=== PATIENT | female | born 1950 | race Caucasian/White ===

== ENCOUNTER 2017-10-05 12:01 | Emergency (ER) | payer MEDICARE, MEDICAID ==
[~2017-10-05] VITALS: Ht 170.2 cm; Wt 86.4 kg
[~2017-10-05 12:01] MED LIST: ARIP5TAB4 PO; ASPI81TA47 PO; ATOR40TA3 PO; CHOL100046 PO; CITA40TA11 PO; CLOP75TA18 PO; CYA500T PO; DIVA250T6 PO; GLIP5TAB13 PO; HYDR-565 PO; LANTUS SUBCUT; LINA5TAB4 PO; LISI10TA PO; LORA0.5T PO; MELO-100 PO; OMEP40CA37 PO; PHE12.5T PO; SUMA50TA PO; SYN0.025T PO; TIZA4TAB11 PO
[2017-10-05 13:45] VITALS: BP 141/71
== END 2017-10-05 18:42 | disposition home or self-care (01) ==
LOC: ER 12:02
DX: I16.0 Hypertensive urgency (principal); H53.8 Other visual disturbances; I67.82 Cerebral ischemia; E11.9 Type 2 diabetes mellitus without complications; I11.0 Hypertensive heart disease with heart failure; I50.9 Heart failure, unspecified; J44.9 Chronic obstructive pulmonary disease, unspecified; E78.00 Pure hypercholesterolemia, unspecified; G89.29 Other chronic pain; I25.2 Old myocardial infarction; Z86.73 Personal history of transient ischemic attack (TIA), and cerebral infarction without residual deficits; Z79.82 Long term (current) use of aspirin; Z79.4 Long term (current) use of insulin; Z79.899 Other long term (current) drug therapy; Z88.0 Allergy status to penicillin; Z88.5 Allergy status to narcotic agent; Z91.018 Allergy to other foods; Z88.7 Allergy status to serum and vaccine; Z88.8 Allergy status to other drugs, medicaments and biological substances
CPT/HCPCS: 70450; 99284

== ENCOUNTER 2017-12-13 09:13 | Day surgery (SDC) | payer MEDICARE, MEDICAID ==
[~2017-12-13] VITALS: Ht 167.6 cm; Wt 94.5 kg
[2017-12-13 09:25] VITALS: BP 124/54
[2017-12-13] MEDS ORDERED: CYCL-1 PO (14:58)
[2017-12-13] MEDS ORDERED: LACO100T2 PO (15:10)
[2017-12-13] MEDS ORDERED: CITA40TA22 PO (16:32)
[2017-12-13] MEDS ORDERED: CHOL10002 PO (16:32)
[2017-12-13] MEDS ORDERED: imitrex PO (16:35)
[2017-12-13] MEDS ORDERED: DIVA500T7 PO (16:41)
[2017-12-13] MEDS ORDERED: INSU100C10 SQ (16:43)
[2017-12-13] MEDS ORDERED: ACET-75 PO (16:46)
[2017-12-13] MEDS ORDERED: DOCU-28 PO (16:47)
[2017-12-13] MEDS ORDERED: LEVO50TA8 PO (16:49)
[2017-12-14] MEDS ORDERED: TIOT4MIS2 IH (12:16)
[2017-12-14] MEDS ORDERED: FLUT16SP2 BOTHNARES (12:17)
[2017-12-14] MEDS ORDERED: LANTUS SQ (12:18)
[2017-12-14] MEDS ORDERED: LINA5TAB4 PO (12:19)
[2017-12-14] MEDS ORDERED: ALBU18HF2 INH (12:22)
[2017-12-14] MEDS ORDERED: NAPR500T6 PO (12:24)
[2017-12-14] MEDS ORDERED: CARV6.253 PO (12:26)
[2017-12-14] MEDS ORDERED: ALBU2.5V12 NEB (12:26)
[2017-12-14] MEDS ORDERED: BUDE180A INH (12:27)
[2017-12-14] MEDS ORDERED: FURO-150 PO (12:28)
[2017-12-14] MEDS ORDERED: TEMA15CA5 PO (12:29)
== END 2017-12-13 10:20 | disposition home or self-care (01) ==
LOC: GI LAB 09:13
PROVIDERS: ATTEND Internal Medicine Gastroenterology
DX: R19.5 Other fecal abnormalities (principal); Z53.8 Procedure and treatment not carried out for other reasons; Z79.82 Long term (current) use of aspirin; Z79.899 Other long term (current) drug therapy; Z79.4 Long term (current) use of insulin; E11.9 Type 2 diabetes mellitus without complications; Z88.5 Allergy status to narcotic agent; Z88.8 Allergy status to other drugs, medicaments and biological substances; Z88.0 Allergy status to penicillin; Z91.09 Other allergy status, other than to drugs and biological substances; Z91.018 Allergy to other foods; J44.9 Chronic obstructive pulmonary disease, unspecified; I11.0 Hypertensive heart disease with heart failure; I50.9 Heart failure, unspecified; E78.00 Pure hypercholesterolemia, unspecified; I25.2 Old myocardial infarction; Z86.73 Personal history of transient ischemic attack (TIA), and cerebral infarction without residual deficits

== ENCOUNTER 2017-12-14 11:53 | Day surgery (SDC) | payer MEDICARE, MEDICAID ==
[~2017-12-14] VITALS: Ht 167.6 cm; Wt 94.5 kg
[~2017-12-14 11:53] MED LIST changes: +ACET-75 PO; +CHOL10002 PO; +CITA40TA22 PO; +CYCL-1 PO; +DIVA500T7 PO; +DOCU-28 PO; +INSU100C10 SQ; +LACO100T2 PO; +LEVO50TA8 PO; -SYN0.025T PO; +imitrex PO
[2017-12-14 12:00] VITALS: BP 130/80
[2017-12-14] MEDS ORDERED: TIOT4MIS2 IH (12:16)
[2017-12-14] MEDS ORDERED: FLUT16SP2 BOTHNARES (12:17)
[2017-12-14] MEDS ORDERED: LANTUS SQ (12:18)
[2017-12-14] MEDS ORDERED: LINA5TAB4 PO (12:19)
[2017-12-14] MEDS ORDERED: ALBU18HF2 INH (12:22)
[2017-12-14] MEDS ORDERED: NAPR500T6 PO (12:24)
[2017-12-14] MEDS ORDERED: CARV6.253 PO (12:26)
[2017-12-14] MEDS ORDERED: ALBU2.5V12 NEB (12:26)
[2017-12-14] MEDS ORDERED: BUDE180A INH (12:27)
[2017-12-14] MEDS ORDERED: FURO-150 PO (12:28)
[2017-12-14] MEDS ORDERED: TEMA15CA5 PO (12:29)
[2017-12-14] MEDS ORDERED: MIDAZolam 5mg/ml 2ml vial ONE (12:45)
[2017-12-14] MEDS ORDERED: fentaNYL/PF 50MCG/1 ML 2ML syringe ONE (12:45)
[2017-12-14 13:40] VITALS: BP 122/70
[2017-12-14 13:50] VITALS: BP 120/68
[2017-12-14 14:00] VITALS: BP 124/68
[2017-12-14 14:10] VITALS: BP 124/70
== END 2017-12-14 14:18 | disposition home or self-care (01) ==
LOC: GI LAB 11:53
PROVIDERS: ATTEND Internal Medicine Gastroenterology
DX: R19.5 Other fecal abnormalities (principal); K21.9 Gastro-esophageal reflux disease without esophagitis; F41.9 Anxiety disorder, unspecified; E78.5 Hyperlipidemia, unspecified; I10 Essential (primary) hypertension; M19.90 Unspecified osteoarthritis, unspecified site; E11.9 Type 2 diabetes mellitus without complications; Z79.82 Long term (current) use of aspirin; Z88.0 Allergy status to penicillin; Z88.6 Allergy status to analgesic agent; Z91.048 Other nonmedicinal substance allergy status; Z91.018 Allergy to other foods; Z79.4 Long term (current) use of insulin; Z79.891 Long term (current) use of opiate analgesic; Z95.5 Presence of coronary angioplasty implant and graft; Z87.891 Personal history of nicotine dependence; Z90.49 Acquired absence of other specified parts of digestive tract; Z90.89 Acquired absence of other organs; Z90.710 Acquired absence of both cervix and uterus; Z88.7 Allergy status to serum and vaccine; Z86.73 Personal history of transient ischemic attack (TIA), and cerebral infarction without residual deficits; Z88.8 Allergy status to other drugs, medicaments and biological substances; Z79.899 Other long term (current) drug therapy; Z98.890 Other specified postprocedural states
CPT/HCPCS: 45378; G0500; J2250; J3010; J7030; A4620

== ENCOUNTER 2018-01-27 11:12 | Emergency (ER) | payer MEDICARE, MEDICAID ==
[~2018-01-27] VITALS: Ht 167.6 cm; Wt 94.5 kg
[~2018-01-27 11:12] MED LIST changes: +ALBU18HF2 INH; +ALBU2.5V12 NEB; +BUDE180A INH; +CARV6.253 PO; -CITA40TA11 PO; -DIVA250T6 PO; -DOCU-28 PO; +FLUT16SP2 BOTHNARES; +FURO-150 PO; +LANTUS SQ; -LANTUS SUBCUT; -MELO-100 PO; +NAPR500T6 PO; +TEMA15CA5 PO; +TIOT4MIS2 IH; -imitrex PO
[2018-01-27 12:01] LABS: BASOPHILS % (AUTO) 0.2 % (0-1); EOSINOPHILS # (AUTO) 0.4 X10'3 (0-0.9); EOSINOPHILS % (AUTO) 5.9 % (0-6); HEMATOCRIT 35.7 % (35.0-45.0); HEMOGLOBIN 12.2 g/dl (12.0-16.0); LYMPHOCYTES # (AUTO) 1.8 X10'3 (1.1-4.8); LYMPHOCYTES % (AUTO) 26.5 % (21-51); MEAN CORPUSCULAR HEMOGLOBIN 30.2 PG (27.0-31.0); MEAN CORPUSCULAR HGB CONC 34.1 % (33.0-36.5); MEAN CORPUSCULAR VOLUME 88.5 FL (78-98); MEAN PLATELET VOLUME 8.2 FL (7.4-10.4); MONOCYTES # (AUTO) 0.4 X10'3 (0-0.9); MONOCYTES % (AUTO) 5.4 % (2-12); NEUTROPHILS # (AUTO) 4.2 X10'3 (1.8-7.7); PLATELET COUNT 241 X10'3 (140-440); RED BLOOD COUNT 4.04 X10'6 (4.20-5.60); RED CELL DISTRIBUTION WIDTH 14.4 % (11.5-14.5); WHITE BLOOD COUNT 6.8 X10'3 (4.5-11.0)
[2018-01-27 12:10] LABS: INR 0.9 INR; PARTIAL THROMBOPLASTIN TIME 24 SECONDS (22-32); PROTHROMBIN TIME 9.4 SECONDS (9.0-12.0)
[2018-01-27 12:17] LABS: ALANINE AMINOTRANSFERASE 27 U/L (12-78); ALBUMIN 3.2 G/DL (3.4-5.0); ALBUMIN/GLOBULIN RATIO 0.8 (1.1-1.5); ALKALINE PHOSPHATASE 86 IU/L (46-116); ANION GAP 7 (8-16); ASPARTATE AMINO TRANSFERASE 16 U/L (10-37); BILIRUBIN,TOTAL 0.4 MG/DL (0.1-1.0); BLOOD UREA NITROGEN 15 MG/DL (7-18); CALCIUM 9.3 MG/DL (8.5-10.1); CHLORIDE 103 MMOL/L (99-107); CREATININE 0.94 MG/DL (0.40-0.90); GLUCOSE 206 MG/DL (70-104); POTASSIUM 4.9 MMOL/L (3.5-5.1); SODIUM 138 MMOL/L (135-145); TOTAL CARBON DIOXIDE 28.2 MMOL/L (24-32); eGFR 59 ML/MIN
[2018-01-27 13:41] LABS: CLARITY,URINE CLEAR (Clear); COLOR,URINE YELLOW (Yellow); GLUCOSE, URINE NEGATIVE (Neg); KETONES,URINE NEGATIVE (Neg); LEUKOCYTE ESTERASE ,URINE TRACE (Neg); NITRITES, URINE NEGATIVE (Neg); OCCULT BLOOD,URINE NEGATIVE (Neg); PROTEIN,URINE NEGATIVE (Neg); UROBILINOGEN,URINE 0.2 E.U/dL (0.2-1.0)
[2018-01-27 13:46] LABS: UA COLLECTION TYPE STRAIGHT CATH
[2018-01-27 13:47] LABS: BACTERIA,URINE NONE SEEN /HPF (Neg); MUCUS STRANDS NONE SEEN /LPF (Neg); RBC,URINE NONE SEEN /HPF (0-2); SQUAMOUS EPITHELIAL CELL,UR FEW /LPF (FEW); WBC,URINE 0-4 /HPF (0-4)
[2018-01-27 15:11] VITALS: BP 132/68
== END 2018-01-27 15:15 | disposition home or self-care (01) ==
LOC: ER 11:13
DX: R53.1 Weakness (principal); I11.0 Hypertensive heart disease with heart failure; I50.9 Heart failure, unspecified; E78.00 Pure hypercholesterolemia, unspecified; I25.2 Old myocardial infarction; J44.9 Chronic obstructive pulmonary disease, unspecified; E11.9 Type 2 diabetes mellitus without complications; G89.29 Other chronic pain; Z87.891 Personal history of nicotine dependence; Z79.4 Long term (current) use of insulin; Z79.899 Other long term (current) drug therapy; Z86.73 Personal history of transient ischemic attack (TIA), and cerebral infarction without residual deficits
CPT/HCPCS: 36415; 70450; 71045; 80053; 81001; 84484; 85025; 85610; 85730; 87088; 93005; 99285; A4353

== ENCOUNTER 2018-02-18 16:13 | Emergency (ER) | payer MEDICARE, MEDICAID ==
[~2018-02-18] VITALS: Ht 167.6 cm; Wt 68.0 kg
[2018-02-18] MEDS ORDERED: acetaminophen 325mg tablet PO ONE (16:20)
[2018-02-18 19:00] VITALS: BP 140/91
== END 2018-02-18 19:03 | disposition home or self-care (01) ==
LOC: ER 16:13
DX: S09.90XA Unspecified injury of head, initial encounter (principal); I11.0 Hypertensive heart disease with heart failure; I50.9 Heart failure, unspecified; I25.2 Old myocardial infarction; E11.9 Type 2 diabetes mellitus without complications; E78.00 Pure hypercholesterolemia, unspecified; J44.9 Chronic obstructive pulmonary disease, unspecified; G89.29 Other chronic pain; Z88.0 Allergy status to penicillin; Z90.710 Acquired absence of both cervix and uterus; Z86.73 Personal history of transient ischemic attack (TIA), and cerebral infarction without residual deficits; Z79.4 Long term (current) use of insulin; W18.30XA Fall on same level, unspecified, initial encounter; Y93.89 Activity, other specified; Y92.89 Other specified places as the place of occurrence of the external cause; Y99.8 Other external cause status
CPT/HCPCS: 70450; 99284

== ENCOUNTER 2018-02-20 17:41 | Emergency (ER) | payer MEDICARE, MEDICAID ==
[~2018-02-20] VITALS: Ht 167.6 cm; Wt 90.0 kg
[2018-02-20 18:16] LABS: BASOPHILS % (AUTO) 0.3 % (0-1); EOSINOPHILS # (AUTO) 0.1 X10'3 (0-0.9); EOSINOPHILS % (AUTO) 2.2 % (0-6); HEMATOCRIT 37.8 % (35.0-45.0); LYMPHOCYTES # (AUTO) 2.3 X10'3 (1.1-4.8); MEAN CORPUSCULAR HGB CONC 34.4 % (33.0-36.5); MEAN CORPUSCULAR VOLUME 87.3 FL (78-98); MEAN PLATELET VOLUME 7.6 FL (7.4-10.4); MONOCYTES # (AUTO) 0.5 X10'3 (0-0.9); MONOCYTES % (AUTO) 7.8 % (2-12); NEUTROPHILS # (AUTO) 3.1 X10'3 (1.8-7.7); NEUTROPHILS % (AUTO) 51.7 % (42-75); PLATELET COUNT 292 X10'3 (140-440); RED BLOOD COUNT 4.33 X10'6 (4.20-5.60); RED CELL DISTRIBUTION WIDTH 14.1 % (11.5-14.5)
[2018-02-20 18:30] LABS: ALANINE AMINOTRANSFERASE 38 U/L (12-78); ALBUMIN 3.5 G/DL (3.4-5.0); ALBUMIN/GLOBULIN RATIO 0.9 (1.1-1.5); ALKALINE PHOSPHATASE 89 IU/L (46-116); ANION GAP 7 (8-16); ASPARTATE AMINO TRANSFERASE 21 U/L (10-37); BILIRUBIN,TOTAL 0.3 MG/DL (0.1-1.0); BLOOD UREA NITROGEN 11 MG/DL (7-18); BUN/CREATININE RATIO 10.6 (6.6-38.0); CHLORIDE 97 MMOL/L (99-107); CREATININE 1.04 MG/DL (0.40-0.90); GLUCOSE 123 MG/DL (70-104); POTASSIUM 4.1 MMOL/L (3.5-5.1); SODIUM 133 MMOL/L (135-145); TOTAL CARBON DIOXIDE 29.5 MMOL/L (24-32); TOTAL PROTEIN 7.5 G/DL (6.4-8.2); eGFR 53 ML/MIN
[2018-02-20 20:17] LABS: CLARITY,URINE CLOUDY (Clear); COLOR,URINE YELLOW (Yellow); GLUCOSE, URINE NEGATIVE (Neg); KETONES,URINE NEGATIVE (Neg); LEUKOCYTE ESTERASE ,URINE LARGE (Neg); NITRITES, URINE POSITIVE (Neg); OCCULT BLOOD,URINE MODERATE (Neg); PROTEIN,URINE NEGATIVE (Neg); UROBILINOGEN,URINE 0.2 E.U/dL (0.2-1.0)
[2018-02-20 20:18] LABS: UA COLLECTION TYPE STRAIGHT CATH
[2018-02-20 20:24] LABS: BACTERIA,URINE 4+ /HPF (Neg); SQUAMOUS EPITHELIAL CELL,UR FEW /LPF (FEW); WBC,URINE TNTC /HPF (0-4)
[2018-02-20 20:55] VITALS: BP 137/84
== END 2018-02-20 20:57 | disposition home or self-care (01) ==
LOC: ER 17:42
DX: I63.9 Cerebral infarction, unspecified (principal); G31.84 Mild cognitive impairment of uncertain or unknown etiology; E78.00 Pure hypercholesterolemia, unspecified; J44.9 Chronic obstructive pulmonary disease, unspecified; E11.9 Type 2 diabetes mellitus without complications; G89.29 Other chronic pain; I11.0 Hypertensive heart disease with heart failure; I50.9 Heart failure, unspecified; Z86.73 Personal history of transient ischemic attack (TIA), and cerebral infarction without residual deficits; Z90.710 Acquired absence of both cervix and uterus; Z98.61 Coronary angioplasty status; Z79.82 Long term (current) use of aspirin; Z79.4 Long term (current) use of insulin; Z79.899 Other long term (current) drug therapy; Z88.0 Allergy status to penicillin; Z88.5 Allergy status to narcotic agent; Z91.010 Allergy to peanuts; Z88.8 Allergy status to other drugs, medicaments and biological substances; Z91.018 Allergy to other foods
CPT/HCPCS: 36415; 80053; 81001; 82948; 85025; 87088; 99284; A4353

== ENCOUNTER 2019-06-19 13:01 | Emergency (ER) | payer MEDICARE, MEDICAID ==
[~2019-06-19] VITALS: Ht 167.6 cm; Wt 72.3 kg
[~2019-06-19 13:01] MED LIST changes: -ATOR40TA3 PO; +ATOR40TA7 PO; -CLOP75TA18 PO; +CLOP75TA80 PO; -CYA500T PO; +CYAN500T63 PO; +DIVA-76 PO; -DIVA500T7 PO; +HYDR-4353 PO; -HYDR-565 PO; +OMEP40CA13 PO; -OMEP40CA37 PO; -PHE12.5T PO; +PROM12.510 PO
[2019-06-19 14:38] LABS: BASOPHILS % (AUTO) 0.5 % (0-1); EOSINOPHILS # (AUTO) 0.1 X10'3 (0-0.9); HEMATOCRIT 43.5 % (35.0-45.0); HEMOGLOBIN 14.7 g/dl (12.0-16.0); LYMPHOCYTES # (AUTO) 1.5 X10'3 (1.1-4.8); LYMPHOCYTES % (AUTO) 25.2 % (21-51); MEAN CORPUSCULAR HEMOGLOBIN 31.7 PG (27.0-31.0); MEAN CORPUSCULAR HGB CONC 33.7 g/dL (33.0-36.5); MEAN CORPUSCULAR VOLUME 94.1 FL (78-98); MEAN PLATELET VOLUME 7.9 FL (7.4-10.4); MONOCYTES # (AUTO) 0.3 X10'3 (0-0.9); MONOCYTES % (AUTO) 5.9 % (2-12); NEUTROPHILS # (AUTO) 3.9 X10'3 (1.8-7.7); NEUTROPHILS % (AUTO) 67.4 % (42-75); PLATELET COUNT 267 X10'3 (140-440); RED BLOOD COUNT 4.63 X10'6 (4.20-5.60); RED CELL DISTRIBUTION WIDTH 13.1 % (11.5-14.5); WHITE BLOOD COUNT 5.9 X10'3 (4.5-11.0)
[2019-06-19 14:40] LABS: URINE AMPHETAMINE SCREEN NEGATIVE (Neg); URINE BARBITUATE SCREEN NEGATIVE (Neg); URINE BENZODIAZEPINES SCREEN NEGATIVE (Neg); URINE CANNABINOID SCREEN NEGATIVE (Neg); URINE COCAINE SCREEN NEGATIVE (Neg); URINE METHADONE SCREEN NEGATIVE (Neg); URINE OPIATE SCREEN NEGATIVE (Neg); URINE PHENCYCLIDINE SCREEN NEGATIVE (Neg)
[2019-06-19 14:53] LABS: ALANINE AMINOTRANSFERASE 17 U/L (12-78); ALBUMIN/GLOBULIN RATIO 0.9 (1.1-1.5); ALKALINE PHOSPHATASE 111 IU/L (46-116); ANION GAP 12 (8-16); ASPARTATE AMINO TRANSFERASE 6 U/L (10-37); BILIRUBIN,TOTAL 0.2 MG/DL (0.1-1.0); BLOOD UREA NITROGEN 14 MG/DL (7-18); BUN/CREATININE RATIO 16.1 (6.6-38.0); CALCIUM 9.5 MG/DL (8.5-10.1); CHLORIDE 112 MMOL/L (99-107); CREATININE 0.87 MG/DL (0.40-0.90); GLUCOSE 175 MG/DL (70-104); POTASSIUM 4.2 MMOL/L (3.5-5.1); SODIUM 144 MMOL/L (135-145); TOTAL CARBON DIOXIDE 20.3 MMOL/L (24-32); TOTAL PROTEIN 8.4 G/DL (6.4-8.2); eGFR 65 ML/MIN
[2019-06-19 15:04] LABS: ETHANOL < 0.010 GM/DL (0.0-0.010)
[2019-06-19 15:29] LABS: CLARITY,URINE SLIGHTLY CLOUDY (Clear); COLOR,URINE YELLOW (Yellow); GLUCOSE, URINE 250 mg/dl (Neg); KETONES,URINE NEGATIVE (Neg); LEUKOCYTE ESTERASE ,URINE SMALL (Neg); NITRITES, URINE NEGATIVE (Neg); OCCULT BLOOD,URINE NEGATIVE (Neg); PH,URINE 5.5 (4.8-8.0); PROTEIN,URINE NEGATIVE (Neg); UROBILINOGEN,URINE 0.2 E.U/dL (0.2-1.0)
[2019-06-19 15:30] LABS: UA COLLECTION TYPE OTHER
[2019-06-19 15:41] LABS: MUCUS STRANDS FEW /LPF (Neg); SQUAMOUS EPITHELIAL CELL,UR FEW /LPF (FEW)
[2019-06-19 15:43] LABS: BACTERIA,URINE FEW /HPF (Neg); RBC,URINE 0-2 /HPF (0-2); TRANSITIONAL EPI CELLS,URINE FEW /HPF
[2019-06-19 15:44] LABS: WBC CLUMPS,URINE FEW /HPF (NEGATIVE)
[2019-06-19 15:47] LABS: HYALINE CASTS 0-3 /LPF (NEGATIVE)
[2019-06-19] MEDS ORDERED: GEMF600T89 PO (16:39)
[2019-06-19] MEDS ORDERED: ASPI-611 PO (16:39)
[2019-06-19] MEDS ORDERED: ACET325T55 PO (16:39)
[2019-06-19] MEDS ORDERED: FLUT1DIS7 INH (16:39)
[2019-06-19] MEDS ORDERED: MELA3CAP2 PO (16:39)
[2019-06-19] MEDS ORDERED: LISI10TA4 PO (16:39)
[2019-06-19] MEDS ORDERED: FENT1PAT7 TD (16:39)
[2019-06-19] MEDS ORDERED: AMLO10TA PO (16:39)
[2019-06-19] MEDS ORDERED: PRAV20TA4 PO (16:39)
[2019-06-19] MEDS ORDERED: ASPI-612 (16:39)
[2019-06-19] MEDS ORDERED: CLON-528 PO (16:39)
[2019-06-19] MEDS ORDERED: POTA10TA36 PO (16:39)
[2019-06-19] MEDS ORDERED: TOPI200T16 PO (16:39)
[2019-06-19] MEDS ORDERED: BUDE90AE IH (16:39)
[2019-06-19] MEDS ORDERED: META800T87 PO (16:39)
[2019-06-19] MEDS ORDERED: LAMO100T2 PO (16:39)
[2019-06-19] MEDS ORDERED: FAMO20TA20 PO (16:39)
[2019-06-19] MEDS ORDERED: GLIM1TAB3 PO (16:39)
[2019-06-19] MEDS ORDERED: OXYB10TA4 PO (16:39)
[2019-06-19] MEDS ORDERED: CLON-527 PO (16:39)
[2019-06-19] MEDS ORDERED: SACC250C8 PO (16:39)
[2019-06-19] MEDS ORDERED: LEVO25TA2 PO (16:39)
[2019-06-19] MEDS ORDERED: clonazePAM 0.5mg tablet PO PRN (17:50)
[2019-06-19] MEDS ORDERED: acetaminophen 325mg tablet PO PRN (17:50)
[2019-06-19] MEDS ORDERED: insulin Lispro (HumaLOG) vial - multi-dose SQ SCH (17:55)
[2019-06-19] MEDS ORDERED: dextrose ORAL solution 15 GM/59 ML bottle PO PRN ×2 (17:55)
[2019-06-19] MEDS ORDERED: glucagon, human recombinant 1mg kit SUBCUT PRN (17:55)
[2019-06-19] MEDS ORDERED: cyclobenzaprine 10mg tablet PO PRN (18:10)
--- NOTE | 2019-06-19 18:34 | NUR ---
pt packet faxed to [facility]
--- NOTE | 2019-06-19 20:00 | NUR ---
One to one with the patient to assess severity of depressive symptoms and self harm risk. The patient stated she has been depressed and upset because of family not spending time with her and she has been feeling like she doesn't want to live. She denies having a plan for suicide. [facility]cean is here to evaluated the patient on the 7130 hold.
[2019-06-19] MEDS: budesonide 0.5mg/2ml UD nebule IH SCH (21:00)
[2019-06-19] MEDS ORDERED: insulin glargine (Lantus) pen - multi-dose SQ SCH (21:00)
[2019-06-19] MEDS ORDERED: Melatonin 3mg tablet PO SCH (21:00)
[2019-06-19] MEDS ORDERED: pravastatin 40mg tablet PO SCH (21:00)
[2019-06-19] MEDS: oxybutynin 5mg tablet PO SCH (21:06)
[2019-06-19] MEDS: topiramate 100mg tablet PO SCH (21:06)
[2019-06-19] MEDS: clonazePAM 0.5mg tablet PO SCH (21:07)
[2019-06-19] MEDS: gemfibrozil 600mg tablet PO SCH (21:07)
[2019-06-19] MEDS: albuterol 2.5 MG/3 ML nebule NEB SCH (21:30)
--- NOTE | 2019-06-19 21:38 | NUR ---
The patient declined to have Lantus this evening and stated she was afraid she would go too low on her blood sugar and that is what happened when she was on it before. She stated that she usually takes oral medications at home and at times gets sliding scale coverage. The patient has been placed on a 5150 hold for being a danger to herself.
--- NOTE | 2019-06-19 21:42 | NUR ---
[facility] was made aware of the client needing hospitalization.
--- NOTE | 2019-06-19 22:29 | NUR ---
THe patient appears to be asleep
--- NOTE | 2019-06-20 00:42 | NUR ---
The patient is up to use the bathroom and is now back in bed
--- NOTE | 2019-06-20 01:50 | NUR ---
The patient appears to be asleep
[2019-06-20] MEDS: albuterol 2.5 MG/3 ML nebule NEB SCH ×2 (03:53→09:23)
--- NOTE | 2019-06-20 04:09 | NUR ---
THe patient appears to be sleeping
[2019-06-20 05:51] VITALS: BP_DIAS 67
--- NOTE | 2019-06-20 06:40 | NUR ---
Patient sleeping supine. No distress observed. Continue to monitor.
[2019-06-20] MEDS ORDERED: levoTHYROXINE 25mcg tablet PO SCH (07:00)
[2019-06-20] MEDS: topiramate 100mg tablet PO SCH (08:00)
[2019-06-20] MEDS ORDERED: lamoTRIgine 100mg tablet PO SCH (08:00)
[2019-06-20] MEDS ORDERED: famotidine 20mg tablet PO SCH (08:00)
[2019-06-20] MEDS ORDERED: potassium chloride 10mEq ER tablet PO SCH (08:00)
[2019-06-20] MEDS ORDERED: glimepiride 1 MG tablet PO SCH (08:00)
[2019-06-20] MEDS ORDERED: lisinopril 10 MG tablet PO SCH (08:00)
[2019-06-20] MEDS ORDERED: TYPE IN GENERIC & BRAND NAME OF PATIENT MED STRENGTH & FORM PO SCH (08:00)
[2019-06-20] MEDS ORDERED: clopidogrel 75mg tablet PO SCH (08:00)
[2019-06-20] MEDS: oxybutynin 5mg tablet PO SCH (08:00)
[2019-06-20] MEDS ORDERED: aripiprazole 5mg tablet PO SCH (08:00)
[2019-06-20] MEDS ORDERED: amLODIPine 5mg tablet PO SCH (08:00)
[2019-06-20] MEDS ORDERED: aspirin 81mg tab.chew PO SCH (08:30)
[2019-06-20 08:33] VITALS: BP_SYST 145
[2019-06-20] MEDS: clonazePAM 0.5mg tablet PO SCH (08:34)
[2019-06-20] MEDS: gemfibrozil 600mg tablet PO SCH (08:35)
--- NOTE | 2019-06-20 08:55 | NUR ---
Patient requesting hot tea (pt drank Artemio tea all day yesterday). RN made patient tea and patient upset because patient wanted peppermint tea. RN made patient some peppermint tea. Continue to monitor.
[2019-06-20] MEDS ORDERED: fentaNYL 25MCG/hour patch.TD72 TD SCH (09:00)
--- NOTE | 2019-06-20 09:00 | NUR ---
Patient to be discharged to go upstairs to [facility]. [facility] will take care of removal and replacement because as soon as patient is discharged and then admitted, system requires removal and replacement. No need to remove Fentanyl patch twice in one day. [facility] aware. Continue to monitor.
[2019-06-20] MEDS: budesonide 0.5mg/2ml UD nebule IH SCH (09:23)
--- NOTE | 2019-06-20 09:30 | NUR ---
RN advised patient that we don't carry a couple of the medications she takes daily. Patient refused to take any other medication until she gets those meds. Continue to monitor.
[2019-06-20] MEDS ORDERED: BUDE3CAP8 PO (10:43)
--- NOTE | 2019-06-20 11:20 | NUR ---
Patient ambulatory to BR with walker, steady gait. Patient needs help opening and closing heavy door. No distress noted at this time. Continue to monitor.
--- NOTE | 2019-06-20 11:50 | NUR ---
Patient given discharge instructions because patient is going upstairs to [facility]. Patient upset and wouldn't sign paperwork because she said she was not suicidal. RN intook patient yesterday and patient was suicidal. Continue to monitor.
[2019-06-20] MEDS ORDERED: budesonide 3mg SR capsule PO SCH (11:58)
[2019-06-20] MEDS ORDERED: CLON-528 PO (14:00)
--- NOTE | 2019-06-23 14:50 | NUR ---
contacted [facility] advised of need for follow up u/a faxed to [place].
== END 2019-06-20 12:08 | disposition home or self-care (01) ==
LOC: ER 13:01
DX: F32.9 Major depressive disorder, single episode, unspecified (principal); R45.851 Suicidal ideations; G43.909 Migraine, unspecified, not intractable, without status migrainosus; I11.0 Hypertensive heart disease with heart failure; I50.9 Heart failure, unspecified; E78.00 Pure hypercholesterolemia, unspecified; I25.2 Old myocardial infarction; J44.9 Chronic obstructive pulmonary disease, unspecified; E11.9 Type 2 diabetes mellitus without complications; M19.90 Unspecified osteoarthritis, unspecified site; G89.29 Other chronic pain; F41.9 Anxiety disorder, unspecified; Z95.5 Presence of coronary angioplasty implant and graft; Z90.49 Acquired absence of other specified parts of digestive tract; Z90.710 Acquired absence of both cervix and uterus; Z79.4 Long term (current) use of insulin; Z86.73 Personal history of transient ischemic attack (TIA), and cerebral infarction without residual deficits; Z79.899 Other long term (current) drug therapy; Z79.82 Long term (current) use of aspirin; Z88.0 Allergy status to penicillin; Z88.5 Allergy status to narcotic agent; Z88.8 Allergy status to other drugs, medicaments and biological substances
CPT/HCPCS: 36415; 80053; 80305; 80320; 81001; 82948; 84443; 85025; 87077; 87088; 87186; 94640; 94760; 99285; J1815; J7626

== ENCOUNTER 2019-06-20 10:08 | Inpatient (IN) | payer MEDICARE, MEDICAID ==
[~2019-06-20] VITALS: Ht 157.5 cm; Wt 73.2 kg
[~2019-06-20 10:08] MED LIST changes: +ACET325T55 PO; +AMLO10TA PO; +ASPI-611 PO; +ASPI-612; +BUDE90AE IH; +CLON-527 PO; +CLON-528 PO; +FAMO20TA20 PO; +FENT1PAT7 TD; +FLUT1DIS7 INH; +GEMF600T89 PO; +GLIM1TAB3 PO; +LAMO100T2 PO; +LEVO25TA2 PO; +LISI10TA4 PO; +MELA3CAP2 PO; +META800T87 PO; +OXYB10TA4 PO; +POTA10TA36 PO; +PRAV20TA4 PO; +SACC250C8 PO; +TOPI200T16 PO
[2019-06-20] MEDS ORDERED: BUDE3CAP8 PO (10:43)
--- NOTE | 2019-06-20 12:12 | NUR ---
Admission Note: Myers Clint admitted to Behavioral Health Unit at 1212 hours from overflow downstairs.5150 hold was brought to unit with client. Client was read advisory and understands the conditions of her admission. Vital signs on arrival were: B/P=141/66, P= 78, R=16 and o2 sat was 98 on RA. Her temp was 97.2. MRSA swab was collected and sent to Lab for culture. Inventory was conducted to patient satisfaction. Admission assessment was completed. Please refer to client chart for detailed info of medical hx. Client is a former smoker and consumed her last cigarette over 30 years ago. No smoking cessation was given or requested. Client does not wish to cause herself harm but she states, " I do not want to live but will never do anything to myself". Client states that she is a diabetic as well and has had a, "sliding scale" for , "my whole life". Client was shown and oriented to the unit and has displayed no behavioral issues since her admission today. She is only able to ambulate several steps while utilizing her walker. She has profound left sided weakness secondary to several strokes.
[2019-06-20] MEDS ORDERED: magnesium hydroxide 30ml (MOM) UD suspension PO PRN (12:50)
[2019-06-20] MEDS ORDERED: acetaminophen 325mg tablet PO PRN ×2 (12:50)
[2019-06-20] MEDS ORDERED: mag hydrox/Alum hydrox/simeth 30ml oral suspension PO PRN (12:50)
[2019-06-20] MEDS ORDERED: hydrOXYzine 25 MG tablet PO PRN (12:50)
[2019-06-20] MEDS ORDERED: LORazepam 1 MG tablet PO PRN (12:50)
[2019-06-20] MEDS ORDERED: CLON-528 PO (14:00)
--- NOTE | 2019-06-20 16:17 | NUR ---
RN Progress note: [facility] LE[facility]: 5150 for DTS. Client came from [place] after it was reported that she wished to harm herself. Assessment: What happened this shift: Client was oriented to unit and rules. She was shown her room and was asked to participate in the admission process. She was compliant and engaging during interview and provided accurate information when checked against health hx. She ate in her room while conducting interview and then rested in her bed where she is as of this writing. Client tends to get very loud and intrusive if her needs are not addressed immediately. She redirects easily and will return to baseline behaviors at once. She has a very extensive medical history to include COPD, Asthma, stent placement as well as 3 prior jones and several TIA's. She has left sided weakness secondary to strokes and ambulates very little even with use of walker. S/I H/I: Currently denies. A/V H: Denies currently Sleep: rested this shift at frequent intervals. ADl's: Independent: may need moderate assist Group attendance: no Were meds taken: Yes Med S/E: none noted Mental Status Exam: Appearance: Neat, clean and appropriate for unit. Eye contact: direct Behavior: Speech: pressured,slow Mood: withdrawn Affect: Flat Thought process: Thought content: Cognition: Alert and oriented x 4 Insight: poor Judgement: wnl Interventions: PRN use: Therapeutic interventions: Ensured contract for safety, maintained a safe and supportive environment, encouraged independent performance of ADLs, monitored behavior and need for intervention, educated to pt. to let staff know if he continues to experience insomnia, and maintained Q 15 min safety checks. Restraints/seclusion/emergency medication: N/A Justification of Continued Inpatient Treatment: Per Pavan pt. continues to have poor insight and remains at high risk for discharge. She requires medication adjustments, and a safe and therapeutic environment.
[2019-06-20] MEDS ORDERED: fentaNYL 25MCG/hour patch.TD72 TD SCH ×2 (16:20→20:10)
[2019-06-20] MEDS ORDERED: cyclobenzaprine 10mg tablet PO PRN (16:30)
[2019-06-20 19:00] VITALS: BP 131/65
[2019-06-20] MEDS ORDERED: budesonide 0.5mg/2ml UD nebule IH SCH (20:00)
[2019-06-20] MEDS: clonazePAM 0.5mg tablet PO SCH (20:51)
[2019-06-20] MEDS: pravastatin 40mg tablet PO SCH (20:51)
[2019-06-20] MEDS: topiramate 100mg tablet PO SCH (20:52)
[2019-06-20] MEDS: oxybutynin 5mg tablet PO SCH (20:52)
[2019-06-20] MEDS: gemfibrozil 600mg tablet PO SCH (20:53)
[2019-06-20] MEDS: lactobacillus rhamnosus 10,000 MMU CELLS/CAPSULE PO SCH (20:53)
[2019-06-20] MEDS ORDERED: Melatonin 3mg tablet PO SCH (21:00)
[2019-06-20] MEDS: budesonide 0.5mg/2ml UD nebule IH SCH (21:02)
[2019-06-20] MEDS: albuterol 2.5 MG/3 ML nebule NEB SCH (21:02)
[2019-06-21] MEDS: tizanidine 4mg tablet PO PRN ×3 (00:12→17:03)
[2019-06-21] MEDS: albuterol 2.5 MG/3 ML nebule NEB SCH ×4 (02:51→20:40)
[2019-06-21] MEDS: clonazePAM 0.5mg tablet PO PRN ×3 (04:10→14:58)
--- NOTE | 2019-06-21 05:41 | NUR ---
Nursing Progress Note: Legal hold: 5150 Exp 06/23 @ 1212 Client on involuntary status for DTS. Report received from BEENA Rangel with use of SBAR. Why are they here: Pt was brought in to [facility] by sister for being suicidial x 3 days. Pt lives at [place] and states she wants to and reports her plan would be to be ran over by a train. Pt feels like her children and grandchildren don't want to be around her and hardly visit. Pt. has a hx of 3 suicide attempts of OD. Assessment What has happened this shift: Pt was in her room at shift change no acute distress noted. This health technical writer introduced self and established rapport. Pt is cooperative with 1:1 assessment. Pt requests her Fentanyl patch and this needs to be requested from pharmacy. Pt c/o of low back pain 04/16. Pt states "I don't want to live anymore, but i would never do anything to hurt myself." "I am Bipolar." Pt denies A/VH, HI. Pt stays in room during shift. Pt begins to become agitated as shift progresses and begins finding things to complian about. Pt's Fentanyl patch was placed on left upper back with a Tegaderm bandage placed over it. Pt was upset because she wanted it on the back of her arm. "You are incompetent and I don't care for you." Pt uses FWW due to severe left sided weakness from previous strokes. Pt's has left hand contracture. Pt is independent with most ADL's and just needs 1P SBA. Pt is on Plavix and 1 baby aspirin; multiple bruises are visible on arms. Pt wears a sock over left arm. Pt is DMII on PO meds; pt is ACHS and HS blood sugar was 209. Pt waiting on urine culture from [facility] 06/19/19 for possible UTI. Pt woke up around 0300 wanting something to eat. Pt is DM and refused the snacks that were appropriate for her diabetes. Pt became indignant and started yelling and swearing at staff. Pt came out into chapa yelling. Pt threatened CRN. Pt eventually was able to be redirected back to her room where she was administered PRN 0.25 Klonopin with effect. S/I, H/I: S/I - "I don't want to live anymore, but I would never do anything to hurt myself." A/VH: Pt. denies Sleep: See sleep assessment notation ADL's: Independent, with minimal assist. Uses FWW due to severe left-sided weakness. Pt unable to use left arm. Group attendance: electrician helper, no group Were meds taken: Medication compliant Any med S/E: None reported or observed. Mental Status Exam Appearance: Clean, wearing own clothes appropriate for unit Eye contact: Direct Behavior: Cooperative at first, labile Speech: Pressured Mood: Agitated, depressed Affect: Blunted Thought process: Linear Thought Content: "No one cares about me" Cognition: A&Ox4 Insight: Poor Judgment: Poor Interventions PRN's used: Mateo Therapeutic interventions: 1:1 therapeutic assessment, education on unit rules and procedures, administration/education/monitoring, encouraged independent performance of ADL's, limit setting, fall risk precautions followed; Q15 min safety checks. Restraints/seclusion/emergency medication: N/A Justification of Continued Inpatient Treatment: Pt is depressed and a DTS requiring medication managment in a therapeutic environment.
[2019-06-21] MEDS: acetaminophen 325mg tablet PO PRN (07:31)
[2019-06-21] MEDS: aripiprazole 5mg tablet PO SCH (07:37)
[2019-06-21] MEDS: lamoTRIgine 25mg tablet PO SCH (07:38)
[2019-06-21] MEDS: potassium chloride 10mEq ER tablet PO SCH (07:38)
[2019-06-21] MEDS: topiramate 100mg tablet PO SCH ×2 (07:39→20:49)
[2019-06-21] MEDS: clopidogrel 75mg tablet PO SCH (07:39)
[2019-06-21] MEDS: amLODIPine 5mg tablet PO SCH (07:40)
[2019-06-21] MEDS: lactobacillus rhamnosus 10,000 MMU CELLS/CAPSULE PO SCH ×2 (07:40→20:50)
[2019-06-21] MEDS: oxybutynin 5mg tablet PO SCH ×2 (07:40→20:50)
[2019-06-21] MEDS: levoTHYROXINE 25mcg tablet PO SCH (07:40)
[2019-06-21] MEDS: aspirin 81mg tablet.DR PO SCH (07:41)
[2019-06-21] MEDS: lisinopril 10 MG tablet PO SCH (07:41)
[2019-06-21] MEDS: famotidine 20mg tablet PO SCH (07:42)
[2019-06-21] MEDS: gemfibrozil 600mg tablet PO SCH ×2 (07:42→20:48)
[2019-06-21 08:00] VITALS: BP 121/54
[2019-06-21] MEDS ORDERED: lamoTRIgine 100mg tablet PO SCH (08:00)
[2019-06-21] MEDS ORDERED: glimepiride 1 MG tablet PO SCH (08:00)
[2019-06-21] MEDS: budesonide 0.5mg/2ml UD nebule IH SCH ×2 (08:04→20:41)
[2019-06-21] MEDS: budesonide 3mg SR capsule PO SCH (10:02)
--- NOTE | 2019-06-21 17:45 | NUR ---
Nursing Progress Note: Legal hold: 5150 Exp 06/23 @ 1212 Client on involuntary status for DTS. Report received from Bernarda Torres RN with use of SBAR. Why are they here: Pt was brought in to [facility] by sister for being suicidial x 3 days. Pt lives at [place] and states she wants to and reports her plan would be to be ran over by a train. Pt feels like her children and grandchildren don't want to be around her and hardly visit. Pt. has a hx of 3 suicide attempts of OD. Assessment What has happened this shift: Pt. awake at change of shift. Pt. took AM meds and ate all meals in community room. 1:1 done at bedside. Pt. reports passive SI, states, "I don't care if I live or ". Pt. became tearful when talking about how family does not visit her often in the [place] [facility] and that she feels ignored by her daughters and grandaughters. Pt. said she regretted acting rudely to staff on NOC shift and requested prn klonopin to keep her from acting out. Pt. became agitated during each meal because she has a diabetic diet. Pt. received PRN tylenol for headache with gooed effect. Pt. also received PRN Zanaflex x2 today for back pain with minimal effect. Pt. received klonopin x2 today for anxiety with good effect. S/I, H/I: S/I - Passive SI A/VH: Denies Sleep: Pt. napped x2 today. ADL's: Independent, with minimal assist. Uses FWW due to severe left-sided weakness. Pt unable to use left arm. Group attendance: Yes Were meds taken: Medication compliant Any med S/E: None reported or observed. Mental Status Exam Appearance: Clean, wearing own clothes appropriate for unit Eye contact: Direct Behavior: Cooperative at times, yells when needs not met. Speech: Pressured Mood: Agitated, depressed Affect: flat Thought process: Linear Thought Content: being ignored by family Cognition: A&Ox4 Insight: Poor Judgment: Poor Interventions PRN's used: Klonopin, xanaflex, tylenol Therapeutic interventions: 1:1 therapeutic assessment, education on unit rules and procedures, administration/education/monitoring, encouraged independent performance of ADL's, limit setting, fall risk precautions followed; Q15 min safety checks. Restraints/seclusion/emergency medication: N/A Justification of Continued Inpatient Treatment: Pt is depressed and a DTS requiring medication managment in a therapeutic environment.
[2019-06-21] MEDS ORDERED: insulin Lispro (HumaLOG) vial - multi-dose SQ SCH (18:55)
[2019-06-21] MEDS ORDERED: dextrose ORAL solution 15 GM/59 ML bottle PO PRN ×2 (18:55)
[2019-06-21] MEDS ORDERED: MESSAGE TO PHARMACY PO ONE (18:55)
[2019-06-21] MEDS ORDERED: glucagon, human recombinant 1mg kit SUBCUT PRN (18:55)
[2019-06-21] MEDS ORDERED: dextrose 50%-water 50ml dispensing syringe IV PRN ×2 (18:55)
[2019-06-21 19:00] VITALS: BP 87/36
[2019-06-21] MEDS: clonazePAM 0.5mg tablet PO SCH (20:48)
[2019-06-21] MEDS: insulin glargine (Lantus) pen - multi-dose SQ SCH (20:49)
[2019-06-21] MEDS: QUEtiapine 25mg tablet PO SCH (20:50)
[2019-06-21] MEDS: pravastatin 40mg tablet PO SCH (20:51)
[2019-06-21] MEDS: NYSTATIN CREAM - 30GM TUBE TP SCH (20:54)
[2019-06-22] MEDS: albuterol 2.5 MG/3 ML nebule NEB SCH ×4 (02:32→21:28)
[2019-06-22] MEDS: acetaminophen 325mg tablet PO PRN (02:33)
[2019-06-22] MEDS: tizanidine 4mg tablet PO PRN ×3 (02:34→16:49)
--- NOTE | 2019-06-22 04:07 | NUR ---
Nursing Progress Note: Legal hold: 5150 Exp 06/23 @ 1212 Client on involuntary status for DTS. Report received from BEENA Rangel with use of SBAR. Why are they here: Pt was brought in to [facility] by sister for being suicidial x 3 days. Pt lives at [place] and states she wants to and reports her plan would be to be ran over by a train. Pt feels like her children and grandchildren don't want to be around her and hardly visit. Pt. has a hx of 3 suicide attempts of OD. Assessment What has happened this shift: The patient was seen for 1:1 at her bedside. She was calm and cooperative with assessment. Patient relates that she lives at [facility]. "I never wanted to go there, but the family wants me there." She says that it's not such a bad place. "Nobody comes to see me. There is nothing to live for. I've been abandoned." The patient talked to this narrative writer after having been with Dr. Ponce, and her daughter on the phone. "She hung up on us. At least now they will believe what I say about her." The patient had orders to start insulin therapy tonight. HS BS was 196, she was started on default 12units. The patient remained calm and friendly throughout the night. S/I, H/I: S/I, no plan A/VH: Denies Sleep: See sleep assessment notation ADL's: Mostly independent, needs prompting, and SBA for ambulating. Group attendance: No groups at night Were meds taken: Medication compliant Any med S/E: None reported or observed. Mental Status Exam Appearance: Clean, wearing own clothes appropriate for unit Eye contact: Direct Behavior: Irritable, labile Speech: Pressured Mood: Depressed, Sad Affect: Blunted Thought process: Linear Thought Content: Believes nobody cares about her. Cognition: A&Ox4 Insight: Poor Judgment: Poor Interventions PRN's used: Zanaflex, Tylenol Therapeutic interventions: 1:1 therapeutic assessment, education on unit rules and procedures, administration/education/monitoring, encouraged independent performance of ADL's, limit setting, fall risk precautions followed; Q15 min safety checks. Restraints/seclusion/emergency medication: N/A Justification of Continued Inpatient Treatment: Pt is depressed and a DTS requiring medication managment in a therapeutic environment.
[2019-06-22] MEDS: famotidine 20mg tablet PO SCH (07:41)
[2019-06-22] MEDS: lactobacillus rhamnosus 10,000 MMU CELLS/CAPSULE PO SCH ×2 (07:42→21:04)
[2019-06-22] MEDS: potassium chloride 10mEq ER tablet PO SCH (07:42)
[2019-06-22] MEDS: clopidogrel 75mg tablet PO SCH (07:42)
[2019-06-22] MEDS: oxybutynin 5mg tablet PO SCH ×2 (07:42→21:07)
[2019-06-22] MEDS: topiramate 100mg tablet PO SCH ×2 (07:42→21:06)
[2019-06-22] MEDS: aripiprazole 5mg tablet PO SCH (07:42)
[2019-06-22] MEDS: gemfibrozil 600mg tablet PO SCH ×2 (07:42→21:07)
[2019-06-22] MEDS: clonazePAM 0.5mg tablet PO PRN (07:43)
[2019-06-22] MEDS: lamoTRIgine 25mg tablet PO SCH (07:43)
[2019-06-22] MEDS: aspirin 81mg tablet.DR PO SCH (07:43)
[2019-06-22] MEDS: amLODIPine 5mg tablet PO SCH (07:43)
[2019-06-22] MEDS: levoTHYROXINE 25mcg tablet PO SCH (07:43)
[2019-06-22] MEDS: NYSTATIN CREAM - 30GM TUBE TP SCH ×3 (07:44→21:14)
[2019-06-22] MEDS: lisinopril 10 MG tablet PO SCH (07:44)
[2019-06-22] MEDS: budesonide 3mg SR capsule PO SCH (07:45)
[2019-06-22 07:56] VITALS: BP 113/53
[2019-06-22] MEDS: lamoTRIgine 100mg tablet PO SCH (08:00)
[2019-06-22] MEDS: budesonide 0.5mg/2ml UD nebule IH SCH ×2 (10:16→21:28)
[2019-06-22] MEDS ORDERED: clonazePAM 0.5mg tablet PO PRN (15:50)
[2019-06-22 19:43] VITALS: BP 107/54
[2019-06-22] MEDS ORDERED: polyethylene glycol 3350 17gm powd pack PO PRN (20:00)
[2019-06-22] MEDS: pravastatin 40mg tablet PO SCH (21:03)
[2019-06-22] MEDS: clonazePAM 0.5mg tablet PO SCH (21:04)
[2019-06-22] MEDS: QUEtiapine 25mg tablet PO SCH (21:05)
[2019-06-22] MEDS: insulin glargine (Lantus) pen - multi-dose SQ SCH (21:21)
[2019-06-23] MEDS: albuterol 2.5 MG/3 ML nebule NEB SCH ×2 (02:31→09:21)
--- NOTE | 2019-06-23 03:24 | NUR ---
Nursing Progress Note: Legal hold: 5150 Exp 06/23 @ 1212 Client on involuntary status for DTS. Report received from BEENA Rangel with use of SBAR. Why are they here: Pt was brought in to [facility] by sister for being suicidial x 3 days. Pt lives at [place] and states she wants to and reports her plan would be to be ran over by a train. Pt feels like her children and grandchildren don't want to be around her and hardly visit. Pt. has a hx of 3 suicide attempts of OD. Assessment What has happened this shift: The patient was seen in her room at bedside for 1:1. She is clearly feeling better as she recounts the phone call with her daughter today. "My oldest daughter called today. We had a good conversation, until it wasn't. then I hung up on her." The patient has begun to realize that her family is not going to help her, so she will create her own support system. She is thinking positive thoughts as she knows she will have to return to [place] before she loses her bed. "A friend is coming to see me in the morning, and I'm looking forward to that. The patient has made no recent outbursts. She took all HS meds, then went to sleep. S/I, H/I: Passive SI. A/VH: Denies Sleep: See sleep assessment notation ADL's: Mostly independent, needs prompting, and SBA for ambulating. Group attendance: No groups at night Were meds taken: Medication compliant Any med S/E: None reported or observed. Mental Status Exam Appearance: Clean, wearing own clothes appropriate for unit Eye contact: Direct Behavior: Irritable Speech: Pressured Mood: Depressed, Sad Affect: Labile Thought process: Linear Thought Content: Believes nobody cares about her. Cognition: A&Ox4 Insight: Poor Judgment: Poor Interventions PRN's used: Zanaflex Therapeutic interventions: 1:1 therapeutic assessment, education on unit rules and procedures, administration/education/monitoring, encouraged independent performance of ADL's, limit setting, fall risk precautions followed; Q15 min safety checks. Restraints/seclusion/emergency medication: N/A Justification of Continued Inpatient Treatment: Pt is depressed and a DTS requiring medication managment in a therapeutic environment.
[2019-06-23] MEDS: aripiprazole 5mg tablet PO SCH (07:13)
[2019-06-23] MEDS: clopidogrel 75mg tablet PO SCH (07:13)
[2019-06-23] MEDS: lactobacillus rhamnosus 10,000 MMU CELLS/CAPSULE PO SCH (07:13)
[2019-06-23] MEDS: aspirin 81mg tablet.DR PO SCH (07:13)
[2019-06-23] MEDS: famotidine 20mg tablet PO SCH (07:13)
[2019-06-23] MEDS: lamoTRIgine 100mg tablet PO SCH (07:14)
[2019-06-23] MEDS: amLODIPine 5mg tablet PO SCH (07:15)
[2019-06-23] MEDS: lamoTRIgine 25mg tablet PO SCH (07:15)
[2019-06-23] MEDS: oxybutynin 5mg tablet PO SCH (07:15)
[2019-06-23] MEDS: potassium chloride 10mEq ER tablet PO SCH (07:15)
[2019-06-23] MEDS: levoTHYROXINE 25mcg tablet PO SCH (07:15)
[2019-06-23] MEDS: topiramate 100mg tablet PO SCH (07:16)
[2019-06-23] MEDS: lisinopril 10 MG tablet PO SCH (07:18)
[2019-06-23] MEDS: tizanidine 4mg tablet PO PRN (07:19)
[2019-06-23] MEDS: gemfibrozil 600mg tablet PO SCH (07:19)
[2019-06-23] MEDS: budesonide 3mg SR capsule PO SCH (07:21)
[2019-06-23 08:00] VITALS: BP 134/66
[2019-06-23] MEDS: budesonide 0.5mg/2ml UD nebule IH SCH (09:22)
[2019-06-23] MEDS ORDERED: BISA10SU60 RC (13:32)
[2019-06-23] MEDS ORDERED: MYC15CR TP (13:32)
[2019-06-23] MEDS ORDERED: LAMO150T PO (13:32)
[2019-06-23] MEDS ORDERED: QUET25TA34 PO (13:32)
[2019-06-23] MEDS ORDERED: CLON0.5T5 PO (13:32)
--- NOTE | 2019-06-23 13:55 | NUR ---
Discharge Note Patient discharged back to the [facility] from where she resides, with all her personal possessions, as signed and witnessed by patient and staff. She departed the unit in a wheelchair, accompanied by her sisiter who would be driving her back to her care center. Follow up directions were reviewed with patient who verbalized an understanding of the information. Patient was given prescriptions for her discharge medications. Patient does not smoke and did not require non-smoking supplements. She denies suicidal ideation or intent and has plans for her future. Patient has a counselor that she sees once a week to deal with her childhood trauma.
== END 2019-06-23 13:50 | DRG 885 ==
LOC: ADULT MH 10:08
PROVIDERS: ADMIT Psychiatry & Neurology Psychiatry; ATTEND Psychiatry & Neurology Psychiatry
DX: F31.81 Bipolar II disorder (principal); R45.851 Suicidal ideations; I11.0 Hypertensive heart disease with heart failure; E11.9 Type 2 diabetes mellitus without complications; E03.9 Hypothyroidism, unspecified; E78.00 Pure hypercholesterolemia, unspecified; E78.5 Hyperlipidemia, unspecified; F43.10 Post-traumatic stress disorder, unspecified; G47.00 Insomnia, unspecified; I25.2 Old myocardial infarction; I50.9 Heart failure, unspecified; J44.9 Chronic obstructive pulmonary disease, unspecified; K21.9 Gastro-esophageal reflux disease without esophagitis; K59.00 Constipation, unspecified; L89.159 Pressure ulcer of sacral region, unspecified stage; N32.81 Overactive bladder; Z79.02 Long term (current) use of antithrombotics/antiplatelets; Z79.899 Other long term (current) drug therapy; Z86.73 Personal history of transient ischemic attack (TIA), and cerebral infarction without residual deficits; Z90.710 Acquired absence of both cervix and uterus; Z88.0 Allergy status to penicillin; Z88.1 Allergy status to other antibiotic agents; Z91.010 Allergy to peanuts; Z88.7 Allergy status to serum and vaccine; Z88.8 Allergy status to other drugs, medicaments and biological substances; Z91.018 Allergy to other foods
CPT/HCPCS: 36415; 80053; 80305; 80320; 81001; 82948; 83036; 84443; 85025; 87077; 87081; 87088; 87186; 94640; 94760; 99285; J1815; J7626